=== PATIENT | female | born 1995 | race Hispanic/Latino ===

== ENCOUNTER 2018-08-21 11:55 | Emergency (ER) | payer MEDICAID ==
[2018-08-21 12:45] LABS: BILIRUBIN,URINE Negative (NEGATIVE); COLOR,URINE Yellow (YELLOW); GLUCOSE, URINE (UA) Negative (NEGATIVE); KETONES,URINE 15 mg/dL (NEGATIVE); LEUKOCYTE ESTERASE ,URINE Moderate (NEGATIVE); NITRATE,URINE Negative (NEGATIVE); OCCULT BLOOD,URINE Negative (NEGATIVE); PH,URINE 5.5 (5.0-8.0); PROTEIN,URINE Negative (NEGATIVE)
[2018-08-21 12:46] LABS: APPEARANCE,URINE SLIGHTLY CLOUDY (CLEAR); HCG,QUAL RESULT POSITIVE (NEGATIVE)
[2018-08-21 12:52] LABS: BACTERIA,URINE Moderate /HPF (None Seen); MUCUS,URINE Moderate LPF (None Seen); RBC,URINE None Seen /HPF (0-1)
[2018-08-21] MEDS ORDERED: ONDANSETRON ODT 4 MG TAB ONE (15:10)
== END 2018-08-21 16:15 | disposition home or self-care (01) ==
LOC: EDH 11:55
DX: O23.41 Unspecified infection of urinary tract in pregnancy, first trimester (principal); Z3A.01 Less than 8 weeks gestation of pregnancy
CPT/HCPCS: 76801; 81001; 81025

== ENCOUNTER 2019-03-13 23:41 | Observation (INO) | payer MEDICAID ==
[~2019-03-13] VITALS: Ht 154.9 cm; Wt 71.2 kg
[2019-03-14 00:19] LABS: APPEARANCE,URINE Clear (CLEAR); BILIRUBIN,URINE Negative (NEGATIVE); COLOR,URINE Yellow (YELLOW); GLUCOSE, URINE (UA) Negative (NEGATIVE); KETONES,URINE Negative (NEGATIVE); LEUKOCYTE ESTERASE ,URINE Moderate (NEGATIVE); NITRATE,URINE Negative (NEGATIVE); OCCULT BLOOD,URINE Negative (NEGATIVE); PH,URINE 5.5 (5.0-8.0); PROTEIN,URINE Negative (NEGATIVE)
[2019-03-14 00:33] LABS: BACTERIA,URINE Moderate /HPF (None Seen); MUCUS,URINE Moderate LPF (None Seen); RBC,URINE 0-1 /HPF (0-1)
[2019-03-14] MEDS ORDERED: LACTATED RINGERS 1000ML 1,000 ML IV SCH (01:30)
[2019-03-14] MEDS ORDERED: LACTATED RINGERS 1000ML 1,000 ML IV ONE (01:35)
[2019-03-14] MEDS: TERBUTALINE SULFATE VIAL 1MG/ML SQ SCH ×2 (02:03→03:31)
== END 2019-03-14 03:45 | disposition home or self-care (01) ==
LOC: EDH 23:41 → LDH 23:42
DX: O60.03 Preterm labor without delivery, third trimester (principal); Z3A.36 36 weeks gestation of pregnancy
CPT/HCPCS: 81001; 96372; G0378 ×4; J3105; J7120

== ENCOUNTER 2019-03-21 23:22 | Inpatient (IN) | payer MEDICAID | END 2019-03-23 15:20 | disposition home or self-care (01) | LOC: EDH 23:22 → LDH 23:23 → WSH 03-22 16:30 | PROC: 10E0XZZ Delivery of Products of Conception, External Approach (ICD-10-PCS; principal; ~2019-03-21) | DX: O80 Encounter for full-term uncomplicated delivery (principal); Z37.0 Single live birth; Z3A.38 38 weeks gestation of pregnancy ==

== ENCOUNTER 2019-12-27 10:49 | Observation (INO) | payer MEDICAID ==
[~2019-12-27 10:49] MED LIST: PNV1TABL17 PO
[2019-12-27 11:58] LABS: APPEARANCE,URINE Clear (CLEAR); BILIRUBIN,URINE Negative (NEGATIVE); COLOR,URINE Yellow (YELLOW); GLUCOSE, URINE (UA) Negative (NEGATIVE); KETONES,URINE Negative (NEGATIVE); LEUKOCYTE ESTERASE ,URINE Moderate (NEGATIVE); NITRATE,URINE Negative (NEGATIVE); OCCULT BLOOD,URINE Negative (NEGATIVE); PH,URINE 6.5 (5.0-8.0); PROTEIN,URINE Negative (NEGATIVE); UROBILINOGEN,URINE 0.2 mg/dL (0.2-1.0)
[2019-12-27 13:08] LABS: BACTERIA,URINE Few /HPF (None Seen); RBC,URINE 0-1 /HPF (0-1); SQUAMOUS EPITHELIAL CELL,UR Few /HPF (0-2)
[2019-12-27 14:24] LABS: BASOPHILS % (AUTO) 0.4 % (0.0-5.0); EOSINOPHILS % (AUTO) 6.2 % (0.0-8.0); HEMATOCRIT 33.5 % (36-48); LYMPHOCYTES % (AUTO) 25.4 % (21.0-51.0); MEAN CORPUSCULAR HEMOGLOBIN 30.8 pg (27.0-33.0); MEAN CORPUSCULAR HGB CONC 33.7 g/dL (32.0-36.0); MEAN CORPUSCULAR VOLUME 91.3 fL (79-99); MONOCYTES % (AUTO) 8.1 % (3.0-13.0); NEUTROPHILS % (AUTO) 58.8 % (40.0-77.0); PLATELET COUNT (AUTO) 210 K/uL (130-400); RED BLOOD CELL COUNT(AUTO) 3.67 MIL/uL (4.00-5.50); RED CELL DISTRIBUTION WIDTH 12.7 % (11.0-15.5); WHITE BLOOD COUNT (AUTO) 9.1 K/uL (4.8-10.8)
[2019-12-27 14:38] LABS: ALBUMIN 2.6 g/dL (3.5-5.0); BILIRUBIN,DIRECT 0.1 mg/dL (0.0-0.3); BILIRUBIN,TOTAL 0.1 mg/dL (0.2-1.0)
[2019-12-27] MEDS ORDERED: MAGNESIUM SULFATE 1,000 ML IV PRN (15:19)
[2019-12-27] MEDS ORDERED: CALCIUM GLUCONATE 1 GM/10 ML VIAL IV PRN (15:30)
[2019-12-27] MEDS ORDERED: MAGNESIUM 4GM PREMIX 100ML 100 ML IV SCH (15:30)
[2019-12-27] MEDS ORDERED: CELESTONE SOLUSPAN 6 MG/ML 5ML VIAL IM SCH (15:30)
[2019-12-27] MEDS ORDERED: CELESTONE SOLUSPAN 6 MG/ML 5ML VIAL ONE (15:31)
[2019-12-27] MEDS ORDERED: MAGNESIUM SULFATE 1,000 ML IV ONE (15:32)
[2019-12-27 16:21] LABS: AMPHET/METH SCREEN,URINE NEGATIVE (NEGATIVE); BARBITURATE SCREEN, URINE NEGATIVE (NEGATIVE); BENZODIAZEPINES SCREEN,URINE NEGATIVE (NEGATIVE); CANNABINOID SCREEN,URINE NEGATIVE (NEGATIVE); COCAINE SCREEN,URINE NEGATIVE (NEGATIVE); OPIATE SCREEN,URINE NEGATIVE (NEGATIVE); PHENCYCLIDINE SCREEN,URINE NEGATIVE (NEGATIVE)
[2019-12-28 11:30] LABS: ALBUMIN 2.5 g/dL (3.5-5.0); BILIRUBIN,DIRECT 0.1 mg/dL (0.0-0.3); BILIRUBIN,TOTAL 0.4 mg/dL (0.2-1.0); TOTAL PROTEIN, SERUM 6.8 g/dL (6.0-8.3)
[2019-12-28 11:34] LABS: BASOPHILS % (AUTO) 0.2 % (0.0-5.0); EOSINOPHILS % (AUTO) 0.1 % (0.0-8.0); HEMATOCRIT 32.9 % (36-48); LYMPHOCYTES % (AUTO) 12.5 % (21.0-51.0); MEAN CORPUSCULAR HEMOGLOBIN 30.3 pg (27.0-33.0); MEAN CORPUSCULAR HGB CONC 32.8 g/dL (32.0-36.0); MEAN CORPUSCULAR VOLUME 92.4 fL (79-99); MONOCYTES % (AUTO) 6.9 % (3.0-13.0); NEUTROPHILS % (AUTO) 78.7 % (40.0-77.0); PLATELET COUNT (AUTO) 243 K/uL (130-400); RED BLOOD CELL COUNT(AUTO) 3.56 MIL/uL (4.00-5.50); RED CELL DISTRIBUTION WIDTH 12.7 % (11.0-15.5); WHITE BLOOD COUNT (AUTO) 11.5 K/uL (4.8-10.8)
--- NOTE | 2019-12-28 15:29 | NUR ---
NUTRITION EDUCATION RD provided [facility] [employer] [facility]. RD provided reference materials and handouts. Pt with multiple questions. RD answered all questions. Pt verbalized understanding. RD encouraged Pt to notify as additional questions or concerns arise. Addendum: 12/28/19 at [address] RD Amended: Links added.
[2019-12-29 08:10] LABS: HEPATITIS Bs ANTIGEN SCREEN P Negative (Negative)
== END 2019-12-28 16:00 | disposition home or self-care (01) ==
LOC: LDH 10:49 → INTOOBSV 15:19 → OBSVTOIN 15:19
DX: O62.9 Abnormality of forces of labor, unspecified (principal); O99.613 Diseases of the digestive system complicating pregnancy, third trimester; K80.20 Calculus of gallbladder without cholecystitis without obstruction; Z3A.32 32 weeks gestation of pregnancy
CPT/HCPCS: 36415 ×2; 76705; 80076 ×2; 80305; 81001; 85025 ×2; 86592; 86850; 86900; 86901; 87088; 87340; 96365; 96366 ×2; A4314; G0378 ×8; J0702; J3475 ×2; J7120 ×2; 96360

== ENCOUNTER 2020-01-22 05:30 | Observation (INO) | payer MEDICAID ==
[~2020-01-22] VITALS: Ht 154.9 cm; Wt 68.0 kg
[2020-01-22] MEDS ORDERED: LACTATED RINGERS 1000ML IV ONE (05:45)
[2020-01-22 06:03] LABS: APPEARANCE,URINE Cloudy (CLEAR); BILIRUBIN,URINE Negative (NEGATIVE); COLOR,URINE Yellow (YELLOW); GLUCOSE, URINE (UA) Negative (NEGATIVE); KETONES,URINE Negative (NEGATIVE); LEUKOCYTE ESTERASE ,URINE Moderate (NEGATIVE); NITRATE,URINE Negative (NEGATIVE); OCCULT BLOOD,URINE Negative (NEGATIVE); PROTEIN,URINE Negative (NEGATIVE); UROBILINOGEN,URINE 0.2 mg/dL (0.2-1.0)
[2020-01-22 06:10] LABS: AMPHET/METH SCREEN,URINE NEGATIVE (NEGATIVE); BARBITURATE SCREEN, URINE NEGATIVE (NEGATIVE); BENZODIAZEPINES SCREEN,URINE NEGATIVE (NEGATIVE); CANNABINOID SCREEN,URINE NEGATIVE (NEGATIVE); COCAINE SCREEN,URINE NEGATIVE (NEGATIVE); OPIATE SCREEN,URINE NEGATIVE (NEGATIVE); PHENCYCLIDINE SCREEN,URINE NEGATIVE (NEGATIVE)
[2020-01-22 06:25] LABS: RBC,URINE 0-1 /HPF (0-1)
[2020-01-22 06:26] LABS: BACTERIA,URINE Moderate /HPF (None Seen)
[2020-01-22 06:27] VITALS: BP 135/63
[2020-01-22] MEDS ORDERED: PNV1TABL17 PO (06:29)
[2020-01-22] MEDS ORDERED: AMPICILLIN 2GM+NS 100ML 100 ML IV SCH (06:30)
[2020-01-22] MEDS ORDERED: AMPICILLIN 2GM+NS 100ML 100 ML IV ONE (06:31)
[2020-01-22] MEDS ORDERED: LACTATED RINGERS 1000ML 1,000 ML IV SCH (07:00)
[2020-01-22 09:52] LABS: HEMATOCRIT 34.1 % (36-48); MEAN CORPUSCULAR HEMOGLOBIN 30.3 pg (27.0-33.0); MEAN CORPUSCULAR HGB CONC 33.1 g/dL (32.0-36.0); MEAN CORPUSCULAR VOLUME 91.4 fL (79-99); RED BLOOD CELL COUNT(AUTO) 3.73 MIL/uL (4.00-5.50); RED CELL DISTRIBUTION WIDTH 13.6 % (11.0-15.5); WHITE BLOOD COUNT (AUTO) 8.5 K/uL (4.8-10.8)
[2020-01-22] MEDS: AMPICILLIN 1GM+NS 50ML 50 ML IV SCH ×2 (10:28→14:03)
[2020-01-23 08:11] LABS: HEPATITIS Bs ANTIGEN SCREEN P Negative (Negative)
== END 2020-01-22 17:25 | disposition home or self-care (01) ==
LOC: LDH 05:30
DX: O60.00 Preterm labor without delivery, unspecified trimester (principal); O62.9 Abnormality of forces of labor, unspecified; R10.9 Unspecified abdominal pain; Z3A.36 36 weeks gestation of pregnancy
CPT/HCPCS: 36415; 80305; 81001; 85027; 86592; 86850; 86900; 86901; 87088; 87340; 96365; 96366; G0378 ×12; J0290 ×3; J7120 ×2; 96360; 96361

== ENCOUNTER 2020-01-23 10:07 | Inpatient (IN) | payer MEDICAID ==
[~2020-01-23] VITALS: Ht 157.5 cm; Wt 68.0 kg
[2020-01-23] MEDS ORDERED: AMPICILLIN 2GM+NS 100ML 100 ML IV ONE (10:37)
[2020-01-23] MEDS ORDERED: LACTATED RINGERS 1000ML 1,000 ML IV PRN (10:50)
[2020-01-23] MEDS ORDERED: AMPICILLIN 2GM+NS 100ML 100 ML IV SCH (11:00)
[2020-01-23] MEDS ORDERED: LACTATED RINGERS 500 ML 500 ML IV PRN (11:00)
[2020-01-23] MEDS ORDERED: ROPIVACAINE 0.2% 100ML VIAL 100 ML EP SCH (11:00)
[2020-01-23] MEDS ORDERED: NALOXONE HCL 0.4 MG/1 ML ML IV PRN (11:00)
[2020-01-23] MEDS ORDERED: EPHEDRINE SULFATE 50 MG/ML AMPULE IVP PRN (11:00)
[2020-01-23] MEDS ORDERED: MEPERIDINE-PF 25 MG/ML SYG ONE (11:05)
[2020-01-23] MEDS: OXYTOCIN-LR 20 UNITS/1000 ML 1,000 ML IV SCH ×2 (11:13→12:45)
[2020-01-23] MEDS ORDERED: AMMONIA 1 EA AMP IH ONE (11:16)
[2020-01-23] MEDS ORDERED: ACETAMINOPHEN 325 MG TAB PO PRN (11:45)
[2020-01-23] MEDS ORDERED: LANOLIN 30GM OINTMENT TP PRN (11:45)
[2020-01-23] MEDS ORDERED: ACETAMINOPHEN-CODEINE 300/30MG TAB PO PRN (11:45)
[2020-01-23] MEDS ORDERED: DIPH,PERTUSS(ACELL),TET VAC/PF 0.5 ML VIAL IM PRN (11:45)
[2020-01-23] MEDS ORDERED: MEASLES/MUMPS/RUBELLA VACCINE, LIVE 0.5 ML/VIAL SQ PRN (11:45)
[2020-01-23] MEDS ORDERED: WITCH HAZEL 1 PAD TP PRN (11:45)
[2020-01-23] MEDS ORDERED: BENZOCAINE/LANOLIN/ALOE VERA 60 ML AEROSOL TP PRN (11:45)
[2020-01-23 12:04] LABS: HEMATOCRIT 34.5 % (36-48); MEAN CORPUSCULAR HEMOGLOBIN 29.7 pg (27.0-33.0); MEAN CORPUSCULAR HGB CONC 32.8 g/dL (32.0-36.0); MEAN CORPUSCULAR VOLUME 90.6 fL (79-99); RED BLOOD CELL COUNT(AUTO) 3.81 MIL/uL (4.00-5.50); RED CELL DISTRIBUTION WIDTH 13.7 % (11.0-15.5); WHITE BLOOD COUNT (AUTO) 10.8 K/uL (4.8-10.8)
[2020-01-23 15:00] VITALS: BP 107/60
[2020-01-23] MEDS: IBUPROFEN 600 MG TABLET PO PRN (16:19)
[2020-01-23 19:43] VITALS: BP 108/63
[2020-01-23] MEDS: DOCUSATE SODIUM 100 MG CAP PO SCH (21:23)
[2020-01-23 23:35] VITALS: BP 87/53
[2020-01-24] MEDS: IBUPROFEN 600 MG TABLET PO PRN ×2 (00:18→09:19)
[2020-01-24] MEDS: AMPICILLIN 1GM+NS 50ML 50 ML IV SCH ×2 (03:00→07:00)
[2020-01-24 03:57] VITALS: BP 99/60
[2020-01-24 07:51] VITALS: BP 110/70
[2020-01-24] MEDS: DOCUSATE SODIUM 100 MG CAP PO SCH (09:18)
--- NOTE | 2020-01-24 11:40 | NUR ---
verbal and written discharge instructions given, informed of the follow up appointment, no prescription given. all questions answered. informed to call the doctor for future concerns. pt voiced understanding to all things discussed. Addendum: 01/24/20 at 1153 by TATY DUNLAP RN Amended: Links added.
[2020-01-24 12:50] VITALS: BP 103/56
== END 2020-01-24 13:00 | disposition home or self-care (01) | DRG 560 ==
LOC: OBSVTOIN 10:07 → LDH 10:07 → WSH 14:55
PROC: 10E0XZZ Delivery of Products of Conception, External Approach (ICD-10-PCS; principal; 2020-01-23)
PROC: 3E0234Z Introduction of Serum, Toxoid and Vaccine into Muscle, Percutaneous Approach (ICD-10-PCS; 2020-01-23)
PROC: 3E0134Z Introduction of Serum, Toxoid and Vaccine into Subcutaneous Tissue, Percutaneous Approach (ICD-10-PCS; 2020-01-23)
PROC: 10907ZC Drainage of Amniotic Fluid, Therapeutic from Products of Conception, Via Natural or Artificial Opening (ICD-10-PCS; 2020-01-23)
DX: O80 Encounter for full-term uncomplicated delivery (principal); Z37.0 Single live birth; Z23 Encounter for immunization; Z3A.36 36 weeks gestation of pregnancy
CPT/HCPCS: 36415; 80305; 81001; 85027; 86592; 86850; 86900; 86901; 87088; 87340; 90715; 96360; 96361; 96365; 96366; A4606; G0378; J0290; J2175; J2590; J2795; J3490; J7120

== ENCOUNTER 2021-05-29 06:44 | Day surgery (SDC) | payer MEDICAID ==
[2021-05-26 11:15] VITALS: BP 106/65
[2021-05-26 11:29] LABS: BASOPHILS % (AUTO) 0.6 % (0.0-5.0); EOSINOPHILS % (AUTO) 5.3 % (0.0-8.0); HEMATOCRIT 38.9 % (36-48); LYMPHOCYTES % (AUTO) 42.3 % (21.0-51.0); MEAN CORPUSCULAR HGB CONC 33.7 g/dL (32.0-36.0); MEAN CORPUSCULAR VOLUME 92.2 fL (79-99); MONOCYTES % (AUTO) 8.1 % (3.0-13.0); NEUTROPHILS % (AUTO) 43.1 % (40.0-77.0); PLATELET COUNT (AUTO) 251 K/uL (130-400); RED BLOOD CELL COUNT(AUTO) 4.22 MIL/uL (4.00-5.50); RED CELL DISTRIBUTION WIDTH 12.8 % (11.0-15.5); WHITE BLOOD COUNT (AUTO) 4.7 K/uL (4.8-10.8)
[~2021-05-29] VITALS: Ht 157.5 cm; Wt 61.9 kg
[2021-05-29] VITALS (17 sets, daily range): BP systolic 104–138; BP diastolic 59–80
[~2021-05-29 06:44] MED LIST changes: +CEFAZOLIN SODIUM 1 GM VIAL IVP SCH; +LACTATED RINGERS 1000ML 1,000 ML IV ONE; -PNV1TABL17 PO
[2021-05-29] MEDS ORDERED: MIDAZOLAM HCL 1 MG/ML 2ML VIAL ONE (07:22)
[2021-05-29] MEDS ORDERED: LIDOCAINE PF 100MG/5ML (2%) SYRINGE 5ML ONE (07:22)
[2021-05-29] MEDS ORDERED: ONDANSETRON 4MG INJ ONE (07:22)
[2021-05-29] MEDS ORDERED: PROPOFOL 10 MG/ML 20ML VIAL IV ONE (07:23)
[2021-05-29] MEDS ORDERED: ROCURONIUM 10MG/1ML SYR 10 MG/ML ML ONE (07:23)
[2021-05-29] MEDS ORDERED: FENTANYL CITRATE PF 50 MCG/1 ML 2ML VIAL ONE (07:23)
[2021-05-29] MEDS ORDERED: NEOSTIGMINE 5MG/5ML SYR IV ONE (07:57)
[2021-05-29] MEDS ORDERED: GLYCOPYRROLATE 1 MG/5 ML SYRINGE ONE (07:57)
[2021-05-29] MEDS ORDERED: LIDOCAINE HCL 1% 20 ML VIAL ONE (08:06)
[2021-05-29] MEDS ORDERED: KETOROLAC 30MG VIAL (30MG/ML) ONE (08:17)
[2021-05-29] MEDS ORDERED: MEPERIDINE-PF 25 MG/ML SYG ONE (08:54)
[2021-05-29] MEDS ORDERED: ACETAMINOPHEN 325 MG TAB ONE (09:58)
[2021-05-29] MEDS ORDERED: ACETAMINOPHEN 325 MG TAB PO SCH (10:30)
== END 2021-05-29 10:20 | disposition home or self-care (01) ==
LOC: DAH 06:44
PROVIDERS: ATTEND Obstetrics & Gynecology
DX: Z30.2 Encounter for sterilization (principal); Z20.822 Contact with and (suspected) exposure to COVID-19; Z79.899 Other long term (current) drug therapy; Z79.01 Long term (current) use of anticoagulants
CPT/HCPCS: 36415; 58671; 84703; 85025; 86850; 86900; 86901; 87635; A4215 ×2; A4221; A4222; A4223; A4264; A4351; A4510; A4600; A4606; A4663; A4930 ×2; A6260; C1769 ×3; C9803; G0168; J0690; J1885; J2175; J2250; J2405; J2710; J3010; J3490 ×3; J7120; J2001; J2704